=== PATIENT | male | born 1960 | race Caucasian/White ===

== ENCOUNTER → 2017-06-14 | Day surgery (SDC) | payer BC | LOC: MSO 08:37 | DX: Z12.11 Encounter for screening for malignant neoplasm of colon (principal); K21.9 Gastro-esophageal reflux disease without esophagitis | CPT/HCPCS: 00810; J7120 ==

== ENCOUNTER 2020-11-15 21:43 | Emergency (ER) | payer BC ==
[2020-11-15] MEDS ORDERED: PRILOSEC OTC20 MG PO (21:58)
[2020-11-15] MEDS ORDERED: EFFEXOR XR75 M2 PO (21:59)
[2020-11-15] MEDS ORDERED: GOOD NEIGHBOR P20 MG PO (21:59)
[2020-11-15 22:41] LABS: EOS # 0.3 (0.04-0.40); EOS % 3.9 % (0.0-4.0); HEMATOCRIT 38.3 % (42.0-52.0); HEMOGLOBIN 12.9 g/dL (13.5-18.0); LYMPH# 2.9 (1.50-4.00); MEAN CELL VOLUME 91 fl (78-100); MEAN CORPUSCULAR HEMOGLOBIN 31 pg (27-31); MEAN CORPUSCULAR HGB CONC 34 g/dL (33-37); MEAN PLATELET VOLUME 9.6 fl (7.4-10.4); NEU # 4.4 (1.40-6.50); PLATELET COUNT 316 K/mm3 (130-400); RED BLOOD COUNT 4.23 M/mm3 (4.20-5.60); RED CELL DISTRIBUTION WIDTH 13.3 % (11.5-14.5); WHITE BLOOD COUNT 8.7 K/mm3 (4.8-10.8)
[2020-11-15 22:47] LABS: ALBUMIN 3.9 g/dL (3.5-5.0)
[2020-11-15 22:48] LABS: POTASSIUM 3.5 mmol/L (3.5-5.1)
[2020-11-15 22:49] LABS: CALCIUM 8.8 mg/dL (8.3-10.5)
[2020-11-15 22:50] LABS: TOTAL PROTEIN 6.6 g/dL (6.4-8.3)
[2020-11-15 22:52] LABS: TOTAL BILIRUBIN 0.2 mg/dL (0.2-1.2)
[2020-11-16 03:15] VITALS: BP 107/68
== END 2020-11-16 03:15 | disposition home or self-care (01) ==
LOC: ED 21:43
PROVIDERS: Family Medicine
DX: R07.89 Other chest pain (principal); K21.9 Gastro-esophageal reflux disease without esophagitis; F32.9 Major depressive disorder, single episode, unspecified; F17.210 Nicotine dependence, cigarettes, uncomplicated; Z91.041 Radiographic dye allergy status

== ENCOUNTER → 2020-11-27 | Outpatient (CLI) | payer BC ==
[2020-11-16 03:15] VITALS: BP 107/68
[~2020-11-27] MED LIST: EFFEXOR XR75 M2 PO; GOOD NEIGHBOR P20 MG PO; PRILOSEC OTC20 MG PO
== END ==
LOC: RAD 14:51
DX: R10.13 Epigastric pain (principal)
CPT/HCPCS: Q9967